=== PATIENT | female | born 1970 | race Caucasian/White ===

== ENCOUNTER 2017-10-14 17:55 | Emergency (ER) | payer OTHER ==
--- NOTE | 2017-10-14 17:58 | PDOC ---
Rapid Medical Evaluation Medical Evaluation: Allergies Allergy/AdvReac Type Severity Reaction Status Date / Time No Known Allergies Allergy Verified 03/19/13 02:58 10/14/17 17:56 I have performed a brief in-person evaluation of this patient. The patient presents with a chief complaint of: diarrhea x 5 days, 10 episodes daily, subjective fever, chills, 1 episode of vomiting, denies recent travel Pertinent physical exam findings: well appearing I have ordered the following: labs, urine The patient will proceed to the ED for further evaluation. Discharge Disposition - Diagnosis Diarrhea - Referrals - Patient Instructions - Post Discharge Activity
[2017-10-14 17:59] VITALS: BP 114/74; PULSE 87; TEMP 98.4; BMI 30.2
[2017-10-14 19:19] LABS: URINE APPEARANCE CLEAR; URINE BILIRUBIN NEGATIVE (<2.0 mg/dL); URINE BLOOD NEGATIVE (NEGATIVE); URINE COLOR STRAW; URINE GLUCOSE (UA) NEGATIVE (NEGATIVE); URINE KETONE NEGATIVE (NEGATIVE); URINE LEUK ESTERASE NEGATIVE (NEGATIVE); URINE NITRITE NEGATIVE (NEGATIVE); URINE PROTEIN NEGATIVE (NEGATIVE); URINE UROBILINOGEN NEGATIVE mg/dL (0.2-1.0)
--- NOTE | 2017-10-14 19:20 | PDOC ---
History of Present Illness - General Chief Complaint: Diarrhea Stated Complaint: DIARRHEA Time Seen by Provider: 10/14/17 18:50 History Source: Patient Exam Limitations: No Limitations Past History - Past Medical History Allergies/Adverse Reactions: Allergies Allergy/AdvReac Type Severity Reaction Status Date / Time No Known Allergies Allergy Verified 10/14/17 17:59 Home Medications: Ambulatory Orders No Home Medications 0 dose .ROUTE UTDICT 03/19/13 Anemia: Yes COPD: No Diabetes: Yes (niddm) - Surgical History Abdominal Surgery: Yes (FIBROIDS) - Immunization History Td Vaccination: Yes Immunization Up to Date: Yes - Suicide/Smoking/Psychosocial Hx Smoking Status: No Smoking History: Never smoked Years of Tobacco Use: 0 Number of Cigarettes Smoked Daily: 0 Cigars Per Day: 0 *Physical Exam - Vital Signs Last Vital Signs Temp Pulse Resp BP Pulse Ox 98.4 F 87 18 114/74 100 10/14/17 17:57 10/14/17 17:57 10/14/17 17:57 10/14/17 17:57 10/14/17 17:57 *DC/Admit/Observation/Transfer Diagnosis at time of Disposition: Diarrhea - Referrals - Patient Instructions - Post Discharge Activity
[2017-10-14 19:27] LABS: HCG,QUALITATIVE URINE NEGATIVE
[2017-10-14 19:47] LABS: BASO % 0.2 % (0-2.0); EOS % 0.4 % (0-4.5); HEMATOCRIT 33.5 % (32.4-45.2); HEMOGLOBIN 10.9 GM/dL (10.7-15.3); MCH 23.8 pg (25.7-33.7); MCHC 32.4 g/dl (32.0-36.0); MEAN CELL VOLUME 73.2 fl (80-96); MEAN PLT VOLUME 9.4 fl (7.5-11.1); MONO % 11.6 % (3.8-10.2); NEUT % 59.8 % (42.8-82.8); PLATELET COUNT 245 K/MM3 (134-434); RBC 4.57 M/mm3 (3.60-5.2); RDW 19.1 % (11.6-15.6); WHITE BLOOD COUNT 4.3 K/mm3 (4.0-10.0)
[2017-10-14 20:26] LABS: ALBUMIN 3.7 g/dl (3.4-5.0); ANION GAP 9 (8-16); BILIRUBIN,TOTAL 0.1 mg/dL (0.2-1.0); BLOOD UREA NITROGEN 5 mg/dL (7-18); CALCIUM 8.8 mg/dL (8.5-10.1); CHLORIDE 108 mmol/L (98-107); CO2 21 mmol/L (21-32); CREATININE 0.6 mg/dL (0.55-1.02); GLUCOSE,RANDOM 90 mg/dL (74-106); SGPT/ALT 23 U/L (12-78); SODIUM 138 mmol/L (136-145)
[2017-10-14 20:27] LABS: ALK PHOS 100 U/L (45-117); TOT PROT 7.7 g/dl (6.4-8.2)
[2017-10-14 20:30] LABS: POTASSIUM 4.2 mmol/L (3.5-5.1); SGOT/AST 25 U/L (15-37)
--- NOTE | 2017-10-14 20:43 | PDOC ---
*Physical Exam - Vital Signs Last Vital Signs Temp Pulse Resp BP Pulse Ox 98.4 F 87 18 114/74 100 10/14/17 17:57 10/14/17 17:57 10/14/17 17:57 10/14/17 17:57 10/14/17 17:57 ED Treatment Course - LABORATORY CBC & Chemistry Diagram: 10/14/17 19:20 10/14/17 19:20 - ADDITIONAL ORDERS Additional order review: Laboratory Results 10/14/17 10/14/17 10/14/17 19:20 19:20 18:59 Sodium 138 Potassium 4.2 Chloride 108 H Carbon Dioxide 21 Anion Gap 9 BUN 5 L Creatinine 0.6 Creat Clearance w eGFR > 60 Random Glucose 90 Calcium 8.8 Total Bilirubin 0.1 L D AST 25 ALT 23 Alkaline Phosphatase 100 Total Protein 7.7 Albumin 3.7 Urine Color Straw Urine Appearance Clear Urine pH 6.0 Ur Specific [place] 1.002 Urine Protein Negative Urine Glucose (UA) Negative Urine Ketones Negative Urine Blood Negative Urine Nitrite Negative Urine Bilirubin Negative Urine Urobilinogen Negative Ur Leukocyte Esterase Negative Urine HCG, Qual Negative Blood Type Cancelled Antibody Screen Cancelled 10/14/17 19:20 RBC 4.57 MCV 73.2 L MCHC 32.4 RDW 19.1 H MPV 9.4 D Neutrophils % 59.8 Lymphocytes % 28.0 D Monocytes % 11.6 H Eosinophils % 0.4 D Basophils % 0.2 *DC/Admit/Observation/Transfer Diagnosis at time of Disposition: Diarrhea - Referrals - Patient Instructions - Post Discharge Activity
--- NOTE | 2017-10-14 22:16 | PDOC ---
History of Present Illness - General Chief Complaint: Diarrhea Stated Complaint: DIARRHEA Time Seen by Provider: 10/14/17 18:50 History Source: Patient - History of Present Illness Initial Comments: 10/14/17 22:11 47-year-old female complaining of diarrhea for 5 days with weakness. Patient reports some epigastric pain and mild nausea. Past medical history of anemia that requiring transfusions. Patient denies fevers, chills, chest pain, vomiting , headache dizziness Past History - Past Medical History Allergies/Adverse Reactions: Allergies Allergy/AdvReac Type Severity Reaction Status Date / Time No Known Allergies Allergy Verified 10/14/17 17:59 Home Medications: Ambulatory Orders No Home Medications 0 dose .ROUTE UTDICT 03/19/13 Famotidine [Pepcid -] 40 mg PO DAILY #7 tablet 10/14/17 Anemia: Yes COPD: No Diabetes: Yes (niddm) - Surgical History Abdominal Surgery: Yes (FIBROIDS) - Immunization History Td Vaccination: Yes Immunization Up to Date: Yes - Suicide/Smoking/Psychosocial Hx Smoking Status: No Smoking History: Never smoked Years of Tobacco Use: 0 Number of Cigarettes Smoked Daily: 0 Cigars Per Day: 0 Review of Systems - Review of Systems Able to Perform ROS?: Yes Is the patient limited Swedish proficient: No Constitutional: No: Symptoms Reported, See HPI, Chills, Diaphoresis, Fever, Loss of Appetite, Malaise, Night Sweats, Weakness, Weight Stable, Unintentional Wgt. Loss, Unexplained wgt Loss, Other ABD/GI: Yes: Diarrhea, Nausea. No: Symptoms Reported, See HPI, Abdominal Distended, Abd. Pain w/ defecation, Blood Streaked Bowels, Constipated, Difficulty Swallowing, Poor Appetite, Poor Fluid Intake, Rectal Bleeding, Vomiting, Indigestion, Abdominal cramping, Tarry Stools, Other : No: Symptoms Reported, See HPI, Burning, Dysuria, Discharge, Frequency, Flank Pain, Hematuria, Incontinence, Pain, Urgency, Testicular Mass, Testicular Swelling, Lesions, Testicular Pain, Other Musculoskeletal: No: Symptoms Reported, See HPI, Back Pain, Gout, Joint Pain, Joint Swelling, Muscle Pain, Muscle Weakness, Neck Pain, Joint Stiffness, Other *Physical Exam - Vital Signs Last Vital Signs Temp Pulse Resp BP Pulse Ox 98.4 F 87 18 114/74 100 10/14/17 17:57 10/14/17 17:57 10/14/17 17:57 10/14/17 17:57 10/14/17 17:57 - Physical Exam General Appearance: Yes: Appropriately Dressed Respiratory/Chest: positive: Lungs Clear, Normal Breath Sounds Gastrointestinal/Abdominal: positive: Soft, Increased Bowel Sounds. negative: Tender Musculoskeletal: positive: Normal Inspection Extremity: positive: Normal Capillary Refill, Normal Inspection, Normal Range of Motion Integumentary: positive: Normal Color, Dry, Warm Neurologic: positive: Fully Oriented, Alert, Normal Mood/Affect ED Treatment Course - LABORATORY CBC & Chemistry Diagram: 10/14/17 19:20 10/14/17 19:20 - ADDITIONAL ORDERS Additional order review: Laboratory Results 10/14/17 10/14/17 10/14/17 19:20 19:20 18:59 Sodium 138 Potassium 4.2 Chloride 108 H Carbon Dioxide 21 Anion Gap 9 BUN 5 L Creatinine 0.6 Creat Clearance w eGFR > 60 Random Glucose 90 Calcium 8.8 Total Bilirubin 0.1 L D AST 25 ALT 23 Alkaline Phosphatase 100 Total Protein 7.7 Albumin 3.7 Urine Color Straw Urine Appearance Clear Urine pH 6.0 Ur Specific [place] 1.002 Urine Protein Negative Urine Glucose (UA) Negative Urine Ketones Negative Urine Blood Negative Urine Nitrite Negative Urine Bilirubin Negative Urine Urobilinogen Negative Ur Leukocyte Esterase Negative Urine HCG, Qual Negative Blood Type Cancelled Antibody Screen Cancelled 10/14/17 19:20 RBC 4.57 MCV 73.2 L MCHC 32.4 RDW 19.1 H MPV 9.4 D Neutrophils % 59.8 Lymphocytes % 28.0 D Monocytes % 11.6 H Eosinophils % 0.4 D Basophils % 0.2 *DC/Admit/Observation/Transfer Diagnosis at time of Disposition: Gastroenteritis Diarrhea Qualifiers: Diarrhea type: unspecified type Qualified Code(s): R19.7 - Diarrhea, unspecified - Discharge Dispostion Disposition: HOME - Prescriptions Prescriptions: Famotidine [Pepcid -] 40 mg PO DAILY #7 tablet - Referrals - Patient Instructions Printed Discharge Instructions: Viral Gastroenteritis Additional Instructions: drink plenty of fluids. Additional Instructions: * Please call your personal physician to report your Emergency Department visit and to report your progress, if any. * If there is no improvement in symptoms in 2 days call your physician. * Return to the Emergency Department for any worsening symptoms. worsen . Start a Bananas, RICE ,toast diet. - Post Discharge Activity Forms/Work/School Notes: Back to Work
== END 2017-10-14 22:37 | disposition home or self-care (01) ==
LOC: JER 17:55
DX: K52.9 Noninfective gastroenteritis and colitis, unspecified (principal); E11.9 Type 2 diabetes mellitus without complications; Z79.84 Long term (current) use of oral hypoglycemic drugs; D64.9 Anemia, unspecified
CPT/HCPCS: 36415; 80053; 81003; 84703; 85025; 87086; 99282-25

== ENCOUNTER 2018-08-13 10:24 | Emergency (ER) | payer OTHER ==
[2018-08-13 10:52] VITALS: BP 110/62; PULSE 60; TEMP 98; BMI 27.7
--- NOTE | 2018-08-13 12:06 | PDOC ---
History of Present Illness - General History Source: Patient, Family - History of Present Illness Timing/Duration: other <Jessee Smith - Last Filed: 08/13/18 13:34> <Matthew Starks - Last Filed: 08/16/18 00:12> - General Chief Complaint: Weakness Stated Complaint: WEAKNESS Time Seen by Provider: 08/13/18 11:03 Past History - Past Medical History Anemia: Yes COPD: No Diabetes: Yes (niddm) - Surgical History Abdominal Surgery: Yes (FIBROIDS) - Immunization History Td Vaccination: Yes Immunization Up to Date: Yes - Suicide/Smoking/Psychosocial Hx Smoking Status: No Smoking History: Never smoked Years of Tobacco Use: 0 Number of Cigarettes Smoked Daily: 0 Cigars Per Day: 0 <Jessee Smith Last Filed: 08/13/18 13:34> <Matthew Starks - Last Filed: 08/16/18 00:12> - Past Medical History Allergies/Adverse Reactions: Allergies Allergy/AdvReac Type Severity Reaction Status Date / Time diclofenac Allergy Verified 08/13/18 10:47 Home Medications: Ambulatory Orders metFORMIN HCL [Metformin HCl] 500 mg PO BID 08/13/18 Review of Systems - Review of Systems Constitutional: No: Weakness Respiratory: No: Shortness of Breath Cardiac (ROS): No: Chest Pain ABD/GI: Yes: Abdominal cramping. No: Blood Streaked Bowels, Constipated, Nausea , Rectal Bleeding, Vomiting, Tarry Stools <Jessee Smith Last Filed: 08/13/18 13:34> *Physical Exam - Vital Signs Last Vital Signs Temp Pulse Resp BP Pulse Ox 98 F 60 18 110/62 100 08/13/18 10:51 08/13/18 10:51 08/13/18 10:51 08/13/18 10:51 08/13/18 10:51 - Physical Exam General Appearance: Yes: Appropriately Dressed. No: Apparent Distress HEENT: positive: Normal Voice Neck: positive: Supple Respiratory/Chest: negative: Respiratory Distress Gastrointestinal/Abdominal: positive: Soft. negative: Tender Musculoskeletal: negative: CVA Tenderness Integumentary: positive: Dry, Warm Neurologic: positive: Fully Oriented, Alert, Normal Mood/Affect <Jessee Smith Last Filed: 08/13/18 13:34> - Vital Signs Last Vital Signs Temp Pulse Resp BP Pulse Ox 98 F 60 18 110/62 100 08/13/18 10:51 08/13/18 10:51 08/13/18 10:51 08/13/18 10:51 08/13/18 10:51 <Matthew Starks - Last Filed: 08/16/18 00:12> Moderate Sedation - Procedure Monitoring Vital Signs: Procedure Monitoring Vital Signs Temperature 98 F 08/13/18 10:51 Pulse Rate 60 08/13/18 10:51 Respiratory Rate 18 08/13/18 10:51 Blood Pressure 110/62 08/13/18 10:51 O2 Sat by Pulse Oximetry (%) 100 08/13/18 10:51 <Jessee Smith - Last Filed: 08/13/18 13:34> - Procedure Monitoring Vital Signs: Procedure Monitoring Vital Signs Temperature 98 F 08/13/18 10:51 Pulse Rate 60 08/13/18 10:51 Respiratory Rate 18 08/13/18 10:51 Blood Pressure 110/62 08/13/18 10:51 O2 Sat by Pulse Oximetry (%) 100 08/13/18 10:51 <Matthew Starks - Last Filed: 08/16/18 00:12> ED Treatment Course - LABORATORY CBC & Chemistry Diagram: 08/13/18 12:23 08/13/18 12:23 <Jessee Smith - Last Filed: 08/13/18 13:34> - LABORATORY CBC & Chemistry Diagram: 08/13/18 12:23 08/13/18 12:23 - ADDITIONAL ORDERS Additional order review: 08/13/18 12:23 RBC 4.27 MCV 70.3 L MCHC 31.8 L RDW 16.2 H MPV 8.7 Neutrophils % 57.6 Lymphocytes % 33.7 D Monocytes % 6.3 Eosinophils % 2.1 D Basophils % 0.3 - Medications Given in the ED: ED Medications Discontinued Medications Generic Name Dose Route Start Last Admin Trade Name Rufusq PRN Reason Stop Dose Admin Acetaminophen 650 mg 08/13/18 12:09 08/13/18 12:17 Tylenol - PO 08/13/18 12:10 650 mg ONCE ONE Administration <Matthew Starks - Last Filed: 08/16/18 00:12> Medical Decision Making - Medical Decision Making 08/13/18 12:05 47 yo F, h/o NIDDM, anemia s/p transfusion x 1, denies w/u for anmeia in past and no scope, on iron pills, here w/ cramping to entire left body that pt admits is chronic and intermittent but worsened last night. No sensory changes or focal weakness. States this is the same symptoms she had when she was told she was anemic in the past. No weakness, dizziness, palpitations or SOB. No change in BM, BRBPR, melena, n/v. Pt currently on menses and c/o usual menstrual cramps now See exam R/o worsening anemia s/p transfusion x 1 in past On iron pills Denies w/u in past and no scopes Currently on menses No weakness, dizziness or SOB Well kellen and stable -labs -dispo pending 08/13/18 13:21 Hemoglobin 9.6 today. Last hemoglobin on record was 10.8 in 10/27. Rest of labs unremarkable. Pt remains well appearing her. Stable for dc w/ PMD f/u <Jessee Smith - Last Filed: 08/13/18 13:34> - Medical Decision Making 08/16/18 00:03 The patient was seen and evaluated in conjunction with WASHINGTON Smith under my direct supervision, ancillary studies were reviewed. I agree with the plan as outlined by WASHINGTON Smith . <Matthew Starks - Last Filed: 08/16/18 00:12> *DC/Admit/Observation/Transfer <Jessee Smith - Last Filed: 08/13/18 13:34> <Matthew Starks - Last Filed: 08/16/18 00:12> Diagnosis at time of Disposition: Body aches - Discharge Dispostion Disposition: HOME Condition at time of disposition: Good - Referrals Referrals: ON STAFF,NOT [Primary Care Provider] - - Patient Instructions Additional Instructions: Tu hemoglobina era 9.6 hoy. No hay necesidad de kiah transfusin de yudith o kiah evaluacin adicional en la daisha de emergencias. Contine con nathaly pastillas de cosmo y nelson un seguimiento con romero mdico. Por favor tome Tylenol segn sea necesario para los tayla corporales. - Post Discharge Activity
--- NOTE | 2018-08-13 12:08 | PDOC ---
History of Present Illness - General Chief Complaint: Weakness Stated Complaint: WEAKNESS Time Seen by Provider: 08/13/18 11:03 Past History - Past Medical History Allergies/Adverse Reactions: Allergies Allergy/AdvReac Type Severity Reaction Status Date / Time diclofenac Allergy Verified 08/13/18 10:47 Home Medications: Ambulatory Orders metFORMIN HCL [Metformin HCl] 500 mg PO BID 08/13/18 Anemia: Yes COPD: No Diabetes: Yes (niddm) - Surgical History Abdominal Surgery: Yes (FIBROIDS) - Immunization History Td Vaccination: Yes Immunization Up to Date: Yes - Suicide/Smoking/Psychosocial Hx Smoking Status: No Smoking History: Never smoked Years of Tobacco Use: 0 Number of Cigarettes Smoked Daily: 0 Cigars Per Day: 0 *Physical Exam - Vital Signs Last Vital Signs Temp Pulse Resp BP Pulse Ox 98 F 60 18 110/62 100 08/13/18 10:51 08/13/18 10:51 08/13/18 10:51 08/13/18 10:51 08/13/18 10:51 Moderate Sedation - Procedure Monitoring Vital Signs: Procedure Monitoring Vital Signs Temperature 98 F 08/13/18 10:51 Pulse Rate 60 08/13/18 10:51 Respiratory Rate 18 08/13/18 10:51 Blood Pressure 110/62 08/13/18 10:51 O2 Sat by Pulse Oximetry (%) 100 08/13/18 10:51 Medical Decision Making - Medical Decision Making 08/13/18 12:07 47 yo F, NIDDM, anemia s/p tranfusion ~ 3 years ago, states no w/u for anemia in past per pt/daughter, nos cpe in [place]. on iro, here w/ cramping to entire left side of body, worse yesyet *DC/Admit/Observation/Transfer - Referrals Referrals: ON STAFF,NOT [Primary Care Provider] - - Patient Instructions - Post Discharge Activity
[2018-08-13] MEDS ORDERED: ACETAMINOPHEN 325 MG TABLET (FP) PO ONE (12:09)
[2018-08-13] MEDS ORDERED: ACETAMINOPHEN 325 MG TABLET (FP) ONE (12:11)
[2018-08-13 12:39] LABS: BASO % 0.3 % (0-2.0); EOS % 2.1 % (0-4.5); HEMOGLOBIN 9.6 GM/dL (10.7-15.3); LYMPH % 33.7 % (8-40); MCH 22.4 pg (25.7-33.7); MCHC 31.8 g/dl (32.0-36.0); MEAN CELL VOLUME 70.3 fl (80-96); MEAN PLT VOLUME 8.7 fl (7.5-11.1); MONO % 6.3 % (3.8-10.2); NEUT % 57.6 % (42.8-82.8); PLATELET COUNT 266 K/MM3 (134-434); RBC 4.27 M/mm3 (3.60-5.2); RDW 16.2 % (11.6-15.6)
[2018-08-13 12:50] LABS: INR 1.06 (0.83-1.09); PROTHROMBIN TIME (PATIENT) 12.5 SEC (9.7-13.0)
[2018-08-13 13:02] LABS: ALBUMIN 3.7 g/dl (3.4-5.0); ALK PHOS 75 U/L (45-117); ANION GAP 6 MMOL/L (8-16); BILIRUBIN,TOTAL 0.3 mg/dL (0.2-1); BLOOD UREA NITROGEN 10 mg/dL (7-18); CALCIUM 8.7 mg/dL (8.5-10.1); CHLORIDE 109 mmol/L (98-107); CO2 26 mmol/L (21-32); CREATININE 0.6 mg/dL (0.55-1.3); GLUCOSE,RANDOM 126 mg/dL (74-106); POTASSIUM 4.4 mmol/L (3.5-5.1); SGOT/AST 10 U/L (15-37); SGPT/ALT 16 U/L (13-61); SODIUM 140 mmol/L (136-145)
[2018-08-13 13:10] LABS: URINE APPEARANCE CLEAR; URINE BILIRUBIN NEGATIVE (<2.0 mg/dL); URINE COLOR LTYELLOW; URINE GLUCOSE (UA) NEGATIVE (NEGATIVE); URINE KETONE NEGATIVE (NEGATIVE); URINE LEUK ESTERASE NEGATIVE (NEGATIVE); URINE NITRITE NEGATIVE (NEGATIVE); URINE PROTEIN NEGATIVE (NEGATIVE); URINE UROBILINOGEN NEGATIVE mg/dL (0.2-1.0)
[2018-08-13 13:27] LABS: EPI CELLS MODERATE /HPF (FEW)
== END 2018-08-13 13:53 | disposition home or self-care (01) ==
LOC: JER 10:24
DX: R52 Pain, unspecified (principal); E11.9 Type 2 diabetes mellitus without complications; Z79.84 Long term (current) use of oral hypoglycemic drugs
CPT/HCPCS: 36415; 80053; 81003; 81015; 84702; 84703; 85025; 85610; 86850; 86900; 86901; 99282-25

== ENCOUNTER 2019-03-14 07:08 | Emergency (ER) | payer OTHER ==
[2019-03-14 07:25] VITALS: BP 125/75; PULSE 164; TEMP 98; BMI 28.5
--- NOTE | 2019-03-14 07:54 | PDOC ---
History of Present Illness - General Chief Complaint: Pain, Acute Stated Complaint: ABD PAIN Time Seen by Provider: 03/14/19 07:39 History Source: Patient - History of Present Illness Initial Comments: 03/14/19 08:39 Ms. Aragon is a 48 y/o Welsh speaking woman with hx DM, fibroids s/p surgery 2 years ago, anemia previously requiring transfusion secondary to menstrual blood loss p/w three days of lower abdominal pain. She reports that her symptoms have been occurring during menstruation every month for the last two years since her surgery. She rates the pain 10/10, squeezing "like giving ", no radiation, mildly alleviated by otc acetaminophen, motrin, worse with bearing down. She denies any trauma to the abdomen. She reports that the pain has made it difficult to sleep, and she has had difficulty urinating or having bowel movements secondary to the increased pain while bearing down. She reports taking 3x 500 mg acetaminophen today which have helped control her pain slightly. She reports that she was prescribed oxybutinin for a "bladder problem " but has not started taking it yet. Past History - Past Medical History Allergies/Adverse Reactions: Allergies Allergy/AdvReac Type Severity Reaction Status Date / Time diclofenac Allergy Verified 03/14/19 07:20 Home Medications: Ambulatory Orders metFORMIN HCL [Metformin HCl] 500 mg PO BID 08/13/18 Anemia: Yes COPD: No Diabetes: Yes (niddm) - Surgical History Abdominal Surgery: Yes (FIBROIDS) - Immunization History Td Vaccination: Yes Immunization Up to Date: Yes - Suicide/Smoking/Psychosocial Hx Smoking Status: No Smoking History: Current every day smoker Years of Tobacco Use: 0 Number of Cigarettes Smoked Daily: 5 Cigars Per Day: 0 Information on smoking cessation initiated: No Hx Alcohol Use: No Drug/Substance Use Hx: No Review of Systems - Review of Systems Able to Perform ROS?: Yes Comments:: 03/14/19 08:44 ROS: GENERAL/CONSTITUTIONAL: No fever or chills. No weakness. HEAD, EYES, EARS, NOSE AND THROAT: No change in vision. No ear pain or discharge. No sore throat. CARDIOVASCULAR: No chest pain or shortness of breath RESPIRATORY: No cough, wheezing, or hemoptysis. GASTROINTESTINAL: Abdominal pain. No nausea, vomiting, diarrhea or constipation. GENITOURINARY: No dysuria, frequency, or change in urination. MUSCULOSKELETAL: No joint or muscle swelling or pain. No neck or back pain. SKIN: No rash NEUROLOGIC: No headache, vertigo, loss of consciousness, or change in strength/ sensation. ENDOCRINE: No increased thirst. No abnormal weight change HEMATOLOGIC/LYMPHATIC: No anemia, easy bleeding, or history of blood clots. ALLERGIC/IMMUNOLOGIC: No hives or skin allergy. *Physical Exam - Vital Signs Last Vital Signs Temp Pulse Resp BP Pulse Ox 98.0 F 164 H 16 125/75 100 03/14/19 07:17 03/14/19 07:17 03/14/19 07:17 03/14/19 07:17 03/14/19 07:17 - Physical Exam Comments: 03/14/19 08:45 PE: GENERAL: Awake, alert, and fully oriented, grimacing HEAD: No signs of trauma, normocephalic, atraumatic EYES: PERRLA, EOMI, sclera anicteric, conjunctiva clear ENT: Auricles normal inspection, hearing grossly normal, nares patent, oropharynx clear without exudates. Moist mucosa NECK: Normal ROM, supple, no lymphadenopathy, JVD, or masses LUNGS: No distress, speaks full sentences, clear to auscultation bilaterally HEART: Regular rate and rhythm, normal S1 and S2, no murmurs, rubs or gallops, peripheral pulses normal and equal bilaterally. ABDOMEN: Tenderness LLQ > RLQ. Soft, normoactive bowel sounds. No guarding, no rebound. No masses EXTREMITIES : Normal inspection, Normal range of motion, no edema. No clubbing or cyanosis NEUROLOGICAL: Cranial nerves II through XII grossly intact. Normal speech, normal gait, no focal sensorimotor deficits SKIN: Warm, Dry, normal turgor, no rashes or lesions noted ED Treatment Course - LABORATORY CBC & Chemistry Diagram: 03/14/19 08:15 03/14/19 08:15 Medical Decision Making - Medical Decision Making 03/14/19 08:33 48 y/o F with hx anemia, DM, fibroids p/w 3 days of severe lower abdominal pain , reporting symptoms occurring with menstruation since fibroid surgery 2 years ago. Pain most likely due to menstrual pain, worsened since surgery. Other possible differential includes fibroids given severity of pain with menstruation. Ovarian torsion possible but unlikely given cyclic nature of symptoms. Plan: CBC CMP UA Urine culture Transvaginal ultrasound Bedside abdominal ultrasound IV motrin 600 mg Dispo: Pending labs, imaging 03/14/19 10:34 UA - notable for 3+ blood (patient currently on menstrual period) Hg - 10.0 (baseline) Otherwise: CBC, CMP - wnl TVUS showing no acute process, recommending follow up ultrasound one week into next menstrual period. Results discussed with Ms. 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 Lakesha niveles de yudith, y romero sonogramo resultaron normales. Por favor ve a romero ginecologa en la semana que viene para evaluar a mas causas posibles de romero dolor. Por favor ve a romero doctor de cabezera cuando puede verlo. Regresa a la daisha de urgencias si empiezas a tener mareos, fiebre joycelyn, o dolor christina que es diferente de romero dolor de menstruacion. Print Language: TRINIDADIAN - Post Discharge Activity Forms/Work/School Notes: Back to Work
--- NOTE | 2019-03-14 08:05 | PDOC ---
Attending Attestation - Resident Resident Name: Kobe Vargas - ED Attending Attestation I have performed the following: I have examined & evaluated the patient, The case was reviewed & discussed with the resident, I agree w/resident's findings & plan, Exceptions are as noted - HPI HPI: 03/14/19 08:59 Ms. Aragon is a 48 y/o F h/o DM, fibroids s/p surgery 2 years ago, anemia ( requiring transfusion 2/2 menses), who presents with 3 days of left lower abdominal pain due to her menses. 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 - Physicial Exam PE: 03/14/19 08:00 GENERAL: The patient is in no acute distress. ENT: Ears normal, nares patent, oropharynx clear without exudates. Moist mucous membranes. NECK: Normal range of motion, supple LUNGS: Breath sounds equal, clear to auscultation bilaterally. No wheezes, and no crackles. HEART:Regular rate and rhythm, normal S1 and S2 without murmur, rub or gallop. ABDOMEN: Soft, lower abdominal tenderness to palpation EXTREMITIES: Normal range of motion, no edema. NEUROLOGICAL: Cranial nerves II through XII grossly intact. Normal speech. No focal neurological deficits. SKIN: Warm, Dry, normal turgor, no rashes or lesions noted. 03/14/19 09:03 - Medical Decision Making 03/14/19 09:03 48 yo F h/o fibroids and prior fibroid surgery She presents with a complaint of menstrual pain She has taken tylenol DD: Menstrual cramps, Torsion, Degenerating fibroid, Endometriosis Will do: Basic labs - r/o anemia Pain management - patient has taken Motrin with no allergic response US Re assess 03/15/19 07:34 Laboratory Tests 03/14/19 03/14/19 03/14/19 08:15 08:15 08:15 WBC 5.5 Hgb 10.0 L Hct 32.0 L Plt Count 256 Serum , Qual Negative Urine Blood 3+ H Urine Nitrite Negative Ur Leukocyte Esterase Negative Pt symptoms improved She is anxious to leave because she has to go back to work Will discharge Pt 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
[2019-03-14] MEDS ORDERED: LACTATED RINGERS SOLUTION 1000 ML INFUS.BAG IV ONE (08:07)
[2019-03-14] MEDS ORDERED: IBUPROFEN 800 MG/8 ML IJ IVPB ONE ×2 (08:22→08:40)
[2019-03-14 08:48] LABS: BASO % 0.3 % (0-2.0); MCH 22.9 pg (25.7-33.7); MCHC 31.3 g/dl (32.0-36.0); MEAN CELL VOLUME 73.1 fl (80-96); MEAN PLT VOLUME 9.1 fl (7.5-11.1); MONO % 6.3 % (3.8-10.2); NEUT % 65.4 % (42.8-82.8); PLATELET COUNT 256 K/MM3 (134-434); RBC 4.38 M/mm3 (3.60-5.2); RDW 16.1 % (11.6-15.6); WHITE BLOOD COUNT 5.5 K/mm3 (4.0-10.0)
[2019-03-14 09:08] LABS: ALBUMIN 3.7 g/dl (3.4-5.0); BILIRUBIN,TOTAL 0.3 mg/dL (0.2-1); BLOOD UREA NITROGEN 8.2 mg/dL (7-18); CALCIUM 9.1 mg/dL (8.5-10.1); CREATININE 0.6 mg/dL (0.55-1.3); TOT PROT 7.1 g/dl (6.4-8.2)
[2019-03-14 09:32] LABS: EPI CELLS 1.5 /HPF (0-5/HPF); HYALINE CASTS 1 /lpf (0-8); PH,URINE 5.5 (5.0-8.0); URINE APPEARANCE CLEAR; URINE BILIRUBIN NEGATIVE (NEGATIVE); URINE COLOR YELLOW; URINE GLUCOSE (UA) NEGATIVE (NEGATIVE); URINE KETONE NEGATIVE (NEGATIVE); URINE LEUK ESTERASE NEGATIVE (NEGATIVE); URINE NITRITE NEGATIVE (NEGATIVE); URINE PROTEIN NEGATIVE (NEGATIVE); URINE RBC 629 /hpf (0-4); URINE UROBILINOGEN 0.2 mg/dL (0.2-1.0); URINE WBC 2 /hpf (0-5)
== END 2019-03-14 10:40 | disposition home or self-care (01) ==
LOC: JER 07:08
PROC: 3E0333Z Introduction of Anti-inflammatory into Peripheral Vein, Percutaneous Approach (ICD-10-PCS; principal; 2019-03-14)
DX: N94.6 Dysmenorrhea, unspecified (principal); E11.9 Type 2 diabetes mellitus without complications; Z79.84 Long term (current) use of oral hypoglycemic drugs; D64.9 Anemia, unspecified
CPT/HCPCS: 36415; 76830-TC; 80053; 81003; 84703; 85025; 87086; 96374; 99283-25